=== PATIENT | female | born 1965 | race Caucasian/White ===

== ENCOUNTER 2021-03-06 09:57 | Emergency (ER) | payer OTHER ==
[~2021-03-06] VITALS: Ht 167.6 cm; Wt 83.9 kg
[2021-03-06] MEDS ORDERED: BLOOD PRESSURE MED (10:11)
[2021-03-06] MEDS ORDERED: LASIX 40 MG TAB40 MG PO (10:11)
[2021-03-06] MEDS ORDERED: POTASSIUM99 M1 PO (10:11)
[2021-03-06 12:15] VITALS: BP 177/91
== END 2021-03-06 12:15 | disposition home or self-care (01) ==
LOC: M.ERS 09:57
DX: Z20.822 Contact with and (suspected) exposure to COVID-19 (principal); Z90.89 Acquired absence of other organs; Z88.5 Allergy status to narcotic agent